=== PATIENT | female | born 1995 | race Two or more races ===

== ENCOUNTER 2021-08-05 00:13 | Emergency (ER) | payer SELFPAY ==
[~2021-08-05] VITALS: Ht 152.4 cm; Wt 62.0 kg
[2021-08-05 03:57] LABS: BASOPHILS % 0.8 % (0.0-2.0); EOSINOPHILS % 11.5 % (0.0-5.0); HEMATOCRIT. 38.6 % (36.0-48.0); HEMOGLOBIN. 12.3 g/dL (12.0-16.0); LYMPHOCYTES % 52.5 % (20.0-50.0); MEAN CORPUSCULAR HEMOGLOBIN 29.2 pg (28.0-32.0); MEAN CORPUSCULAR VOLUME 91.1 fL (81.0-99.0); MEAN PLATELET VOLUME 9.4 fl (7.4-10.4); MONOCYTES % 9.2 % (2.0-8.0); PLATELET 166 x1000/uL (130-400); RED BLOOD CELL COUNT 4.23 mill/uL (4.2-5.4); RED CELL DISTRIBUTION WIDTH 15.8 % (11.6-14.6)
[2021-08-05 04:15] LABS: CHLORIDE 114 mEq/L (98-107)
[2021-08-05 04:20] LABS: HCG SCREEN NEGATIVE
[2021-08-05 04:23] LABS: ETHANOL BLOOD < 10 mg/dL
[2021-08-05 10:27] LABS: CLARITY URINE CLEAR (CLEAR); COLOR URINE YELLOW (YELLOW); KETONES URINE NEGATIVE (NEGATIVE); LEUKOCYTE ESTERASE URINE TRACE (NEGATIVE); NITRITE URINE NEGATIVE (NEGATIVE); OCCULT BLOOD URINE NEGATIVE (NEGATIVE); PH URINE 5.5 (4.5-8.0); PROTEIN URINE NEGATIVE (NEGATIVE); SPECIFIC GRAVITY URINE 1.024 (1.005-1.030); UROBILINOGEN URINE 0.2 E.U./dL (0.2-1.0)
[2021-08-05 10:39] LABS: *AMPHETAMINES SCREEN URINE NEGATIVE (NEGATIVE); *BARBITURATES SCREEN URINE NEGATIVE (NEGATIVE); *BENZODIAZEPINES SCREEN URINE NEGATIVE (NEGATIVE)
[2021-08-05 10:40] LABS: *COCAINE SCREEN URINE NEGATIVE (NEGATIVE); CANNABINOID URINE SCREEN NEGATIVE (NEGATIVE); METHADONE URINE SCREEN NEGATIVE (NEGATIVE); OPIATES URINE SCREEN NEGATIVE (NEGATIVE); PHENCYCLIDINE URINE SCREEN NEGATIVE (NEGATIVE)
[2021-08-05] MEDS: RISPERIDONE 1MG TABLET PO SCH ×2 (11:43→21:00)
[2021-08-05] MEDS ORDERED: LORAZEPAM 2MG/ML CPJ IM STA (17:42)
[2021-08-05] MEDS ORDERED: HALOPERIDOL LACTATE 5MG/ML VIAL IM ONE (17:45)
[2021-08-06] MEDS: RISPERIDONE 1MG TABLET PO SCH ×2 (09:02→21:00)
[2021-08-06] MEDS ORDERED: ALBUTEROL 6.7GM HFA INHALER ORI ONE (14:30)
[2021-08-07] MEDS ORDERED: ALBUTEROL (0.083%) 2.5MG/3ML NEB HHN STA (02:49)
[2021-08-07] MEDS ORDERED: IPRATROPIUM BROMIDE (0.02%) 0.5MG/2.5ML NEB HHN STA (02:49)
[2021-08-07] MEDS ORDERED: ALBUTEROL (0.083%) 2.5MG/3ML NEB ONE (03:32)
[2021-08-07] MEDS: RISPERIDONE 1MG TABLET PO SCH (08:20)
[2021-08-07 09:00] VITALS: BP 127/88
== END 2021-08-07 10:58 | disposition home or self-care (01) ==
LOC: ER 00:13 → EDBD 00:13 → ER 08-07 10:58
DX: F29 Unspecified psychosis not due to a substance or known physiological condition (principal); G93.40 Encephalopathy, unspecified; Z20.822 Contact with and (suspected) exposure to COVID-19
CPT/HCPCS: 36415; 70450; 80053; 80305; 80307; 80320; 80329; 81003; 84703; 85025; 94640; 96372; 99285; C9803; J1630; J2060; U0003; U0005; Z7610; G0480